=== PATIENT | male | born 1940 | race Caucasian/White ===

== ENCOUNTER → 2017-03-23 | Outpatient (CLI) | payer MEDICARE, BC ==
[~2017-03-23] MED LIST: ADVAIR 10028 PUFF/IN IN; AGGRENOX (D1 CAPSULE PO; ALLOPURINOL100 MG PO; ASPIRIN 325MG325 MG PO; ATENOLOL25 MG PO; ATENOLOL50 MG PO; ATIVAN1 MG PO; BLOOD PRESSURE; CHEWABLE ASPIRI81 MG PO; DARVOCET-N6 EACH/PAK PO; EC NAPROSYN500 MG PO; FAMOTIDINE 20MG20 MG PO; FAMOTIDINE20 MG PO; FLUTICASONE 50M16 GM; LISINOPRIL 5MG T5 MG PO; MECLIZINE25 MG PO; MICRO-K 10 MEQ10 MEQ PO; NITROSTAT0.4 MG SL; OXYCODONE 5MG TA5 MG PO; PRAVACHOL 20MG.20 MG PO; PRAVASTATIN20 MG PO; TRIAMCINOLON 0.15 GM TP; WARFARIN SOD5 MG PO; XARELTO20 MG PO; ZESTRIL 10MG TA10 MG PO; ZITHROMAX Z-PA250 M1 PO
--- NOTE | 2017-03-24 11:58 | RADIOLOGY REPORT PS360 ---
MRI-L-SPINE W/WO, MRI-3D RENDERING/MYELOGRAM HISTORY: Right-sided low back pain/pelvic pain LOW BACK PAIN ORDERING PHYSICIAN: MAC FUNEZ PATIENT AGE: 77 years COMPARISON: None TECHNIQUE: Standard multiplanar multiecho sequences are performed without and with contrast. 3-D MIP and myelographic images are also rendered and reviewed FINDINGS: There is normal alignment. The spinal cord ends at the L1-L2 level. T12-L1: Mild degenerative disc disease with small anterior endplate osteophytes. Schmorl's node is present along the superior endplate of L1. L1-L2: Small anterior osteophytes with mild disc desiccation. L2-L3: There is some minimal foraminal disc protrusion on the left with mild foraminal narrowing. L3-L4: There is mild concentric bulging disc with facet hypertrophic change and mild bilateral lateral recess and foraminal narrowing slightly greater on the right. L4-L5: Degenerative disc disease with bulging disc along with facet and ligamentum flavum hypertrophy with severe bilateral lateral recess and foraminal narrowing. There is 3 mm anterolisthesis of L4 on L5. L5-S1: Facet hypertrophic change with moderate bilateral foraminal narrowing slightly greater on the right. No extruded herniated disc. There is minimal upper lumbar scoliosis convex right. No acute fracture or dislocation. No enhancing lesions IMPRESSION: 1. T12-L1: Mild degenerative disc disease with small anterior endplate osteophytes. Schmorl's node is present along the superior endplate of L1. 2. L2-L3: There is some minimal foraminal disc protrusion on the left with mild foraminal narrowing. 3. L3-L4: There is mild concentric bulging disc with facet hypertrophic change and mild bilateral lateral recess and foraminal narrowing slightly greater on the right. 4. L4-L5: Degenerative disc disease with bulging disc along with facet and ligamentum flavum hypertrophy with severe bilateral lateral recess and foraminal narrowing. There is 3 mm anterolisthesis of L4 on L5. 5. L5-S1: Facet hypertrophic change with moderate bilateral foraminal narrowing slightly greater on the right
== END ==
LOC: RAD 09:14
DX: M54.5 Low back pain (principal)
CPT/HCPCS: A9576

== ENCOUNTER 2017-04-21 08:05 | Day surgery (SDC) | payer MEDICARE, BC ==
[~2017-04-21] VITALS: Ht 177.8 cm; Wt 107.0 kg
[2017-04-21 08:12] VITALS: BP 125/81
[2017-04-21 08:36] VITALS: BP 125/81; BP 143/105
--- NOTE | 2017-04-21 08:44 | Procedure Note ---
Procedure detail Date of procedure: 04/21/17 Anesthesiologist: Amandeep Olson Complications: None Pre-procedure diagnosis: Degenerative disc disease lumbar spine multiple levels. Lumbar radiculopathy symptoms. Lumbar facet arthropathy. Post-procedure diagnosis: Same. Indications for procedure: Very pleasant 77-year-old white male that presents to our procedure clinic for medial branch block/facet blocks L3-4, L4-5, L5-S1 bilateral. Patient describes low back pain as constant, dull, aching. He rates the pain 6/10. Patient reports pain intensifies with flexion, extension, LEFT and RIGHT rotation. His lumbar imaging reveals degenerative disease lumbar spine multiple levels. Multilevel lumbar facet arthropathy. Lumbar spondylosis. Procedure detail: Informed consent was obtained and the risk and benefits of the procedure was explained to the patient. Patient was taken to the procedure room where noninvasive monitors were placed, including noninvasive blood pressure cuff as well as pulse oximeter. The area over the lumbar spine was cleansed using chlorhexidine as a cleansing solution. I anesthetized the skin and subcutaneous tissues with 1% Lidocaine. I placed 22-gauge spinal needles into the facet joint / medial branches of [L3-L4, L4-L5, and L5-S1] bilaterally. Needle placement was confirmed with fluoroscopy. After confirmation of needle placement, each site was injected with 1 mL of 1% lidocaine and 0.25 % Marcaine and 10 mg of Depo- Medrol. A total of 80 mg of depo medrol was used for bilateral medial branch blocks of [L3-L4, L4-L5, and L5-S1] bilaterally. Patient tolerated the procedure without difficulty. There were no complications. Plan and disposition: Patient was reevaluated 10 minutes post procedure. He reports 100 percent improvement terms of his lumbar back pain in flexion, extension, lateral rotation. at [id number]
[2017-04-21 08:50] VITALS: BP 120/85
== END 2017-04-21 08:51 | disposition home or self-care (01) ==
LOC: PM 08:05
PROC: 3E0T3BZ Introduction of Anesthetic Agent into Peripheral Nerves and Plexi, Percutaneous Approach (ICD-10-PCS; principal; 2017-04-21)
PROC: 3E0T33Z Introduction of Anti-inflammatory into Peripheral Nerves and Plexi, Percutaneous Approach (ICD-10-PCS; 2017-04-21)
PROC: BR161ZZ Fluoroscopy of Lumbar Facet Joint(s) using Low Osmolar Contrast (ICD-10-PCS; 2017-04-21)
DX: M51.16 Intervertebral disc disorders with radiculopathy, lumbar region (principal); M54.06 Panniculitis affecting regions of neck and back, lumbar region
CPT/HCPCS: J1040